=== PATIENT | male | born 2000 | race Caucasian/White ===

== ENCOUNTER → 2020-07-08 12:22 | Outpatient (CLI) | payer OTHER, SELFPAY ==
--- NOTE | 2020-07-08 | DI.MRI.S_ITS ---
PROCEDURE: MR SHOULDER LT W CON INDICATIONS: Pain in left shoulder TECHNIQUE: After the administration of 12 mL of dilute intra-articular Gadolinium contrast, oblique coronal T1 and T2 spin echo with fat saturation, oblique sagittal T1 spin echo with and without fat saturation, oblique sagittal T2 fast spin echo with fat saturation, axial T1 spin echo with fat saturation through the shoulder. COMPARISON: [facility], , [place] ARTHROGRAM SHOULDER LT, 07/08/2020, 13:00. FINDINGS: Rotator cuff: Minimal supraspinatus tendinopathy. No discrete rotator cuff tear identified. Teres minor and infraspinatus tendons appear intact. Subscapularis tendon appears intact. No atrophy of the rotator cuff muscles. Bones and bursae: No bone marrow contusions or fractures. Minimal acromioclavicular joint degeneration. Acromion demonstrates conventional anatomy, without an os acromiale. No subacromial-subdeltoid bursitis. Capsule and soft tissues: Labrum: Sublabral foramen is incidentally noted, anatomic variant. There is small cleft of gadolinium contrast material seen at the junction of the labrum and articular cartilage on image 11/6 of the anterior inferior glenoid raising possibility of early chondrolabral separation. Long head of the biceps tendon intact. The rotator interval appears normal, without fibrosis. Coracohumeral ligament intact. IMPRESSION: Minimal supraspinatus tendinopathy. No discrete rotator cuff tear identified Possible early anteroinferior chondrolabral separation although technically indeterminate and subtle MR appearance. Recommend correlation to clinical exam findings. Dictated by: Juan R Adkins M.D. on 07/08/2020 at 14:22 Approved by: Juan R Adkins M.D. on 07/08/2020 at 14:31
--- NOTE | 2020-07-08 | DI.RAD.S_ITS ---
PROCEDURE: [place] ARTHROGRAM SHOULDER LT INDICATIONS: Pain in left shoulder COMPARISON: None. TECHNIQUE: The indications, alternatives, benefits, risks, and complications of the procedure were explained to the patient. Written informed consent was obtained and placed in the chart. The shoulder was examined fluoroscopically and a site for needle placement chosen for entry into the glenohumeral joint from an anterior approach. The skin was prepped and draped in a sterile fashion, and 1% lidocaine infiltrated from skin down to joint capsule. A spinal needle was inserted into the glenohumeral joint, and a small amount of iodinated contrast media injected to confirm intra-articular placement of the needle tip. This was followed by approximately 12 mL dilute solution of a gadolinium containing MR contrast agent. The needle was removed and a dressing was applied. The patient was given postprocedural instructions and sent to the MR suite for MR imaging. FINDINGS: A single fluoroscopic spot image demonstrates intra-articular location of injected iodinated contrast. IMPRESSION: Successful fluoroscopically guided administration of dilute Gadolinium solution into the shoulder joint for MR arthrogram. Dictated by: Carmen Campa MD, PhD on 07/08/2020 at 16:10 Approved by: Carmen Campa MD, PhD on 07/08/2020 at 16:10
== END ==
PROVIDERS: Referring Provider Orthopaedic Surgery; Visit Provider Orthopaedic Surgery
DX: M25.512 Pain in left shoulder (principal)
CPT/HCPCS: 23350; 73040; 73222; 77002